=== PATIENT | female | born 1990 | race Native Hawaiian/Other Pacific Islander ===

== ENCOUNTER 2021-04-06 20:14 | Emergency (ER) | payer OTHER ==
[~2021-04-06] VITALS: Ht 154.9 cm; Wt 76.7 kg
[2021-04-06 22:05] VITALS: BP 120/88; TEMP 98.4
== END 2021-04-06 22:05 | disposition home or self-care (01) ==
LOC: ED 20:14
DX: H65.191 Other acute nonsuppurative otitis media, right ear (principal); J06.9 Acute upper respiratory infection, unspecified
CPT/HCPCS: 99283

== ENCOUNTER 2021-07-28 09:04 | Emergency (ER) | payer OTHER ==
[~2021-07-28] VITALS: Ht 154.9 cm; Wt 76.7 kg
[2021-07-28 10:00] VITALS: BP 133/75; TEMP 97.8
== END 2021-07-28 10:00 | disposition home or self-care (01) ==
LOC: ED 09:04
DX: J01.80 Other acute sinusitis (principal); R51.9 Headache, unspecified
CPT/HCPCS: 96372; 99283; J0696; J1100

== ENCOUNTER 2021-09-13 13:41 | Emergency (ER) | payer OTHER ==
[~2021-09-13] VITALS: Ht 154.9 cm; Wt 86.2 kg
[2021-09-13 13:43] VITALS: TEMP 97.7
[2021-09-13 16:10] VITALS: BP 1336/79
== END 2021-09-13 16:10 | disposition home or self-care (01) ==
LOC: ED 13:41
DX: J20.9 Acute bronchitis, unspecified (principal)
CPT/HCPCS: 87502; 99282; 99283

== ENCOUNTER 2022-02-20 15:19 | Emergency (ER) | payer OTHER ==
[~2022-02-20] VITALS: Ht 154.9 cm; Wt 86.2 kg
[2022-02-20 16:35] VITALS: BP 142/86; TEMP 98.8
== END 2022-02-20 16:35 | disposition home or self-care (01) ==
LOC: ED 15:19
DX: Z20.822 Contact with and (suspected) exposure to COVID-19 (principal); J32.8 Other chronic sinusitis
CPT/HCPCS: 87635; 99283; U0003

== ENCOUNTER 2022-06-22 10:16 | Outpatient (CLI) | payer OTHER | END 2022-06-22 19:25 | disposition home or self-care (01) | LOC: MAMMO 10:16 | PROVIDERS: ATTEND Nurse Practitioner Family | DX: N64.4 Mastodynia (principal) | CPT/HCPCS: G0279 ==

== ENCOUNTER 2022-08-06 18:29 | Emergency (ER) | payer OTHER ==
[~2022-08-06] VITALS: Ht 154.9 cm; Wt 81.6 kg
[2022-08-06 19:09] LABS: PLATELET COUNT 575 K/uL (152-353)
[2022-08-06 20:00] VITALS: BP 132/73; TEMP 99.1
== END 2022-08-06 20:00 | disposition home or self-care (01) ==
LOC: ED 18:29
PROVIDERS: Family Medicine
DX: J01.80 Other acute sinusitis (principal); J30.89 Other allergic rhinitis
CPT/HCPCS: 36415; 85027; 87502; 99282

== ENCOUNTER 2022-09-27 17:14 | Emergency (ER) | payer OTHER ==
[~2022-09-27] VITALS: Ht 154.9 cm; Wt 81.6 kg
[2022-09-27 17:17] VITALS: BP 131/71; TEMP 99.3
== END 2022-09-27 18:12 | disposition home or self-care (01) ==
LOC: ED 17:14
DX: J01.80 Other acute sinusitis (principal); Z20.822 Contact with and (suspected) exposure to COVID-19
CPT/HCPCS: 87502; 87635; 87651; 99283; U0001